=== PATIENT | male | born 1990 | race American Indian/Alaskan Native ===

== ENCOUNTER 2018-03-14 01:50 | Emergency (ER) | payer BC, MEDICAID, OTHER ==
--- NOTE | 2018-03-14 02:28 | ED PDOC ---
Arrival/HPI - General Historian: Patient - History of Present Illness Time/Duration: < week Symptom Onset: Gradual Symptom Course: Unchanged Quality: Aching, Pressure, Tightness Severity Level: 5 Activities at Onset: Rest <Johnny Cochran - Last Filed: 03/14/18 04:01> <Rasheed Bryant - Last Filed: 03/14/18 04:55> - General Chief Complaint: Chest Pain Time Seen by Provider: 03/14/18 02:04 - History of Present Illness Narrative History of Present Illness (Text): 03/14/18 02:25 Patient is a 27 year old male with no PMH who presents to ED with worsening SOB and L sided chest pain for the past three days. He also complains of generalized diaphoresis and states that his palms seem especially sweaty. He admits to vague numbness type symptoms in his upper extremities bilaterally. He admits to smoking marijuana regularly but denies tobacco, alcohol, or other drug use. He states he is worried he may have diabetes because his mother has diabetes and he has been more thirsty lately. Other than polydypsia, he denies dysuria, increased frequency, fever, chills, cough, wheezing, peripheral swelling, or other symptoms. (Johnny Cochran) Past Medical History - Provider Review Nursing Documentation Reviewed: Yes - Travel History Have you recently traveled outside [place] w/in the past 3 mons?: No - Past History Past History: No Previous - Infectious Disease Hx of Infectious Diseases: None - Psychiatric Hx Substance Use: Yes (marijuana) - Anesthesia Hx Anesthesia: No <Johnny Cochran - Last Filed: 03/14/18 04:01> Family/Social History - Physician Review Nursing Documentation Reviewed: Yes Family/Social History: Diabetes (mother) Smoking Status: Never Smoked Hx Alcohol Use: No Hx Substance Use: Yes (marijuana) Route: Smoking/Inhalation <Johnny Cochran - Last Filed: 03/14/18 04:01> Allergies/Home Meds <Johnny Cochran - Last Filed: 03/14/18 04:01> <Rasheed Bryant - Last Filed: 03/14/18 04:55> Allergies/Adverse Reactions: Allergies No Known Allergies Allergy (Verified 03/14/18 02:06) Home Medications: Home Meds Medication Instructions Recorded Confirmed No Known Home Med 03/14/18 03/14/18 Review of Systems - Physician Review All systems were reviewed & negative as marked: Yes - Review of Systems Constitutional: absent: Fatigue, Weight Change, Fevers Eyes: absent: Vision Changes ENT: absent: Sore Throat, Rhinorrhea Respiratory: SOB. absent: Cough, Wheezing Cardiovascular: Chest Pain. absent: Edema, Syncope Gastrointestinal: absent: Abdominal Pain, Nausea, Vomiting Genitourinary Male: absent: Dysuria, Frequency Musculoskeletal: absent: Arthralgias, Back Pain Skin: absent: Rash, Pruritis Neurological: absent: Headache, Dizziness Endocrine: Diaphoresis, Polydipsia Hemo/Lymphatic: absent: Adenopathy Psychiatric: absent: Anxiety, Depression <Johnny Cochran - Last Filed: 03/14/18 04:01> Physical Exam Vital Signs Reviewed: Yes Temperature: Afebrile Blood Pressure: Normal Pulse: Regular Respiratory Rate: Normal Appearance: Positive for: Non-Toxic, Comfortable Pain Distress: None Mental Status: Positive for: Alert and Oriented X 3 - Systems Exam Head: Present: Atraumatic, Normocephalic Pupils: Present: PERRL Extroacular Muscles: Present: EOMI Conjunctiva: Present: Normal Mouth: Present: Moist Mucous Membranes Pharnyx: Present: Normal. No: ERYTHEMA, EXUDATE Nose (External): Present: Atraumatic Neck: Present: Normal Range of Motion. No: JVD Respiratory/Chest: Present: Clear to Auscultation. No: Wheezes, Rales, Rhonchi Cardiovascular: Present: Regular Rate and Rhythm, Normal S1, S2. No: Murmurs, Rub, Gallop Abdomen: Present: Tenderness (mild tenderness in LLQ). No: Distention, Rebound , Guarding Back: Present: Normal Inspection. No: CVA Tenderness Upper Extremity: Present: Normal Inspection, Neurovascularly Intact. No: Cyanosis, Edema Lower Extremity: Present: Normal Inspection, Neurovascularly Intact. No: Edema Neurological: Present: CN II-XII Intact, Speech Normal, Motor Func Grossly Intact, Normal Sensory Function, Gait Normal Skin: Present: Warm, Dry Psychiatric: Present: Alert, Oriented x 3 <Johnny Cochran - Last Filed: 03/14/18 04:01> Vital Signs Temp Pulse Resp BP Pulse Ox 03/14/18 03:00 98.8 F 74 16 128/77 99 03/14/18 02:03 98.1 F 83 18 140/69 100 Medical Decision Making - Lab Interpretations I have reviewed the lab results: Yes Interpretation: All labs normal - RAD Interpretation Sane Rn: ED Physician - EKG Interpretation Interpreted by ED Physician: Yes Type: 12 lead EKG Comparison: No previous EKG avail. <Johnny Cochran - Last Filed: 03/14/18 04:01> <Rasheed Bryant - Last Filed: 03/14/18 04:55> ED Course and Treatment: 03/14/18 03:14 -Low suspicion for ACS -Troponin and other labs unremarkable -PERC criteria all negative 03/14/18 03:51 -Patient reexamined -States SOB and CP have improved -He feels ready to go home (Johnny Cochran) Patient Seen With Resident: In agreement with resident note which contains more details about the patient. Patient was seen and evaluated with resident. Came up with plan and treatment together. 27 year old male presents complaining of worsening shortness of breath and left- sdied chest pain for the past 3 days. atypcial symtpoms perc neg, cxr neg as read by me, advise outpt fu . Plan: -- EKG -- Labs -- Chest X-ray 2V -- Urinalysis 03/14/18 04:55 (Rasheed Bryant) - Lab Interpretations Lab Results: 03/14/18 02:38 03/14/18 02:38 Lab Results 03/14/18 02:40: Urine Color Yellow, Urine Appearance Clear, Urine pH 6.5, Ur Specific [place] <= 1.005, Urine Protein Negative, Urine Glucose (UA) Negative, Urine Ketones Negative, Urine Blood Negative, Urine Nitrate Negative, Urine Bilirubin Negative, Urine Urobilinogen 0.2, Ur Leukocyte Esterase Negative 03/14/18 02:38: Sodium 141, Potassium 3.6, Chloride 106, Carbon Dioxide 24, Anion Gap 14, BUN 15, Creatinine 1.0, Est GFR ( Amer) > 60, Est GFR (Non- Af Amer) > 60, Random Glucose 112 H, Calcium 9.6, Magnesium 2.0, Total Bilirubin 0.9, AST 20, ALT 25, Alkaline Phosphatase 76, Lactate Dehydrogenase 399, Total Creatine Kinase 135, Troponin I < 0.01, Total Protein 7.3, Albumin 4.5, Globulin 2.8, Albumin/Globulin Ratio 1.6 03/14/18 02:38: PT 12.0, INR 1.05, APTT 25.9 03/14/18 02:38: WBC 8.8, RBC 5.76, Hgb 15.4, Hct 44.3, MCV 76.9 L, MCH 26.7, MCHC 34.8, RDW 12.9, Plt Count 304, MPV 10.0, Gran % 52.4, Lymph % (Auto) 41.9 H , [place] % (Auto) 4.5, Eos % (Auto) 0.3 L, Baso % (Auto) 0.9, Gran # 4.62, Lymph # (Auto) 3.7 H, [place] # (Auto) 0.4, Eos # (Auto) 0.0, Baso # (Auto) 0.08 - RAD Interpretation Narrative RAD Interpretations (Text): 03/14/18 03:51 CXR without acute findings (Johnny Cochran) Radiology Orders: 03/14/18 02:25 CHEST TWO VIEWS (PA/LAT) [RAD] Stat - EKG Interpretation EKG Interpretation (Text): 03/14/18 03:52 Normal sinus rhythm, no ST or T wave changes (Johnny Cochran) <Johnny Cochran - Last Filed: 03/14/18 04:01> - PA / SMOKE EATER / Resident Statement MD/ has reviewed & agrees with the documentation as recorded. MD/ has examined the patient and agrees with the treatment plan. - Scribe Statement The provider has reviewed the documentation as recorded by the Scribe <Rasheed Bryant - Last Filed: 03/14/18 04:55> - Scribe Statement Kamar Gotti Provider Scribe Attestation: All medical record entries made by the Scribe were at my direction and personally dictated by me. I have reviewed the chart and agree that the record accurately reflects my personal performance of the history, physical exam, medical decision making, and the department course for this patient. I have also personally directed, reviewed, and agree with the discharge instructions and disposition. (Rasheed Bryant) Disposition/Present on Arrival - Present on Arrival Any Indicators Present on Arrival: No History of DVT/PE: No History of Uncontrolled Diabetes: No Urinary Catheter: No History of Decub. Ulcer: No History Surgical Site Infection Following: None - Disposition Have Diagnosis and Disposition been Completed?: Yes Disposition Time: 03:51 Patient Plan: Discharge <Johnny Cochran - Last Filed: 03/14/18 04:01> <Rasheed Bryant - Last Filed: 03/14/18 04:55> - Disposition Diagnosis: Dyspnea, Chest pain Disposition: HOME/ ROUTINE Condition: GOOD Discharge Instructions (ExitCare): Chest Pain That Is Not Caused by the Heart ( DC), Chest Pain (ED) Referrals: Camacho Hammond MD [Primary Care Provider] - Follow up with primary Forms: [employer] ([place]ovenian), WORK NOTE
[2018-03-14 02:53] LABS: PH,URINE 6.5 (4.7-8.0); URINE BILIRUBIN NEGATIVE (NEGATIVE); URINE BLOOD NEGATIVE (NEGATIVE); URINE GLUCOSE (UA) NEGATIVE (NEGATIVE); URINE LEUKOCYTE ESTERASE NEGATIVE Leu/uL (NEGATIVE); URINE PROTEIN NEGATIVE mg/dL (<30 mg/dL); URINE UROBILINOGEN 0.2 E.U./dL (<1 E.U./dL)
[2018-03-14 02:55] LABS: INR 1.05
[2018-03-14 02:56] LABS: BASO # 0.08 K/mm3 (0.0-2.0); BASO % 0.9 % (0.0-3.0); EOS % 0.3 % (1.5-5.0); GRAN # 4.62 (1.4-6.5); GRAN % 52.4 % (50.0-68.0); HEMOGLOBIN 15.4 g/dL (14.0-18.0); LYMPH # 3.7 (1.2-3.4); LYMPH % 41.9 % (22.0-35.0); MEAN CELL VOLUME 76.9 fl (80.0-105.0); MEAN CORPUSCULAR HEMOGLOBIN 26.7 pg (25.0-35.0); MEAN CORPUSCULAR HGB CONC 34.8 g/dl (31.0-37.0); MONO # 0.4 (0.1-0.6); MONO % 4.5 % (1.0-6.0); RBC 5.76 10^6/uL (3.5-6.1); RED CELL DISTRIBUTION WIDTH 12.9 % (11.5-14.5); WHITE BLOOD COUNT 8.8 10^3/ul (4.5-11.0)
[2018-03-14 02:58] LABS: PARTIAL THROMBOPLASTIN TIME 25.9 Seconds (25.1-36.5)
[2018-03-14 03:01] LABS: ALB/GLOB RATIO 1.6 (1.1-1.8); ALBUMIN 4.5 g/dL (3.0-4.8); ALT/SGPT 25 U/L (7-56); AST/SGOT 20 U/L (17-59); BLOOD UREA NITROGEN 15 mg/dL (7-21); CALCIUM 9.6 mg/dL (8.4-10.5); GFR AFRICAN-AMERICAN > 60; GFR NON-AFRICAN AMERICAN > 60
[2018-03-14 03:03] LABS: URINE APPEARANCE CLEAR (CLEAR); URINE COLOR YELLOW (YELLOW)
[2018-03-14 03:11] LABS: TROPONIN I < 0.01 ng/mL
[2018-03-14 04:36] VITALS: BP 128/77; PULSE 74; RESP 16; TEMP 98.8; O2SAT 99
--- NOTE | 2018-03-14 22:42 | CARD ---
APPROVED REPORT Date of service: 03/14/2018 EKG Measurement Heart [id number] <Conclusion> Normal sinus rhythm with sinus arrhythmia Normal ECG
== END 2018-03-14 03:00 | disposition home or self-care (01) ==
LOC: ED 01:50
DX: R06.00 Dyspnea, unspecified (principal); R07.9 Chest pain, unspecified

== ENCOUNTER 2018-03-14 19:51 | Observation (INO) | payer OTHER ==
[2018-03-14 21:19] LABS: BASO # 0.05 K/mm3 (0.0-2.0); BASO % 0.6 % (0.0-3.0); EOS % 0.3 % (1.5-5.0); GRAN # 5.57 (1.4-6.5); GRAN % 63.5 % (50.0-68.0); LYMPH # 2.8 (1.2-3.4); LYMPH % 31.7 % (22.0-35.0); MEAN CELL VOLUME 76.5 fl (80.0-105.0); MEAN CORPUSCULAR HEMOGLOBIN 26.9 pg (25.0-35.0); MEAN CORPUSCULAR HGB CONC 35.1 g/dl (31.0-37.0); MEAN PLATELET VOLUME 9.8 fl (7.0-11.0); MONO # 0.3 (0.1-0.6); MONO % 3.9 % (1.0-6.0); RBC 5.58 10^6/uL (3.5-6.1); RED CELL DISTRIBUTION WIDTH 12.9 % (11.5-14.5); WHITE BLOOD COUNT 8.8 10^3/ul (4.5-11.0)
--- NOTE | 2018-03-14 21:21 | ED PDOC ---
Arrival/HPI <Jimmy Moscoso - Last Filed: 03/14/18 21:29> - General Historian: Patient - History of Present Illness Time/Duration: 24 hours Symptom Onset: Sudden Symptom Course: Intermittent Activities at Onset: Rest, Light Context: Home <Tamar Kumari PA-C - Last Filed: 03/15/18 01:24> - General Chief Complaint: Shortness Of Breath Time Seen by Provider: 03/14/18 19:55 - History of Present Illness Narrative History of Present Illness (Text): 03/14/18 21:16 A 27 year old male, with no significant past medical history, presents to the emergency department with a complaint of shortness of breath and chest pain. Patient states that he has been having these symptoms intermittently for the last 24 hours. The patient states that when he experiences the chest pain/ shortness of breath, he also begins to feel numbness to his arms, legs and head. He reports that it occurs every 30 minutes and worsens when he lays down, it is not exertional. He states that his current symptoms began at around 5 PM today and have not resolved. He states that he was seen in the morning for the same symptoms and had a negative cardiac workup. He was also seen by his PMD today, who advised him to come to the emergency department for re-evaluation and possible admission. Patient admits to recent weight loss. He denies fevers, chills, headache, dizziness, dyspnea on exertion, cough, abdominal pain, nausea , vomiting, diarrhea, back pain, neck pain, urinary/bowel changes, or any other complaint. PMD: Dr. Wood (Tamar Kumari PA-C) Past Medical History - Provider Review Nursing Documentation Reviewed: Yes - Past History Past History: No Previous - Infectious Disease Hx of Infectious Diseases: None - Psychiatric Hx Substance Use: Yes (marijuana daily) - Anesthesia Hx Anesthesia: No <Tamar Kumari PA-C - Last Filed: 03/15/18 01:24> Family/Social History - Physician Review Nursing Documentation Reviewed: Yes Family/Social History: No Known Family HX Smoking Status: marijuana Hx Alcohol Use: No Hx Substance Use: Yes (marijuana daily) <Tamar Kumari PA-C - Last Filed: 03/15/18 01:24> Allergies/Home Meds <Danis,Jimmy - Last Filed: 03/14/18 21:29> <Tamar Kumari PA-C - Last Filed: 03/15/18 01:24> Allergies/Adverse Reactions: Allergies No Known Allergies Allergy (Verified 03/14/18 19:53) Home Medications: Home Meds Medication Instructions Recorded Confirmed No Known Home Med 03/14/18 03/14/18 Review of Systems - Physician Review All systems were reviewed & negative as marked: Yes - Review of Systems Constitutional: absent: Fevers Respiratory: SOB. absent: Cough Cardiovascular: Chest Pain. absent: SOTO Gastrointestinal: absent: Abdominal Pain, Stool Changes, Diarrhea, Nausea, Vomiting Genitourinary Male: absent: Urinary Output Changes Musculoskeletal: Other (Hands, legs, head numbness). absent: Back Pain, Neck Pain Neurological: absent: Headache, Dizziness <Tamar Kumari PA-C - Last Filed: 03/15/18 01:24> Physical Exam Temperature: Afebrile Blood Pressure: Normal Pulse: Regular Respiratory Rate: Normal Appearance: Positive for: Well-Appearing, Non-Toxic, Comfortable Pain Distress: None Mental Status: Positive for: Alert and Oriented X 3 - Systems Exam Head: Present: Atraumatic, Normocephalic Pupils: Present: PERRL Extroacular Muscles: Present: EOMI Conjunctiva: Present: Normal Mouth: Present: Moist Mucous Membranes Neck: Present: Normal Range of Motion Respiratory/Chest: Present: Clear to Auscultation, Good Air Exchange. No: Respiratory Distress, Accessory Muscle Use Cardiovascular: Present: Regular Rate and Rhythm, Normal S1, S2. No: Murmurs Abdomen: No: Tenderness, Distention, Peritoneal Signs Back: Present: Normal Inspection Upper Extremity: Present: Normal Inspection. No: Cyanosis, Edema Lower Extremity: Present: Normal Inspection. No: Edema Neurological: Present: GCS=15, CN II-XII Intact, Speech Normal Skin: Present: Warm, Dry, Normal Color. No: Rashes Psychiatric: Present: Alert, Oriented x 3, Normal Insight, Normal Concentration <Tamar Kumari PA-C - Last Filed: 03/15/18 01:24> Vital Signs Temp Pulse Resp BP Pulse Ox 03/14/18 21:03 18 08/06/18 19:54 98.8 F 66 16 146/78 100 Medical Decision Making <Jimmy Moscoso - Last Filed: 03/14/18 21:29> - Lab Interpretations I have reviewed the lab results: Yes - EKG Interpretation Interpreted by ED Physician: Yes Type: 12 lead EKG <Tamar Kumari PA-C - Last Filed: 03/15/18 01:24> ED Course and Treatment: 03/14/18 21:22 Impression: A 27 year old male presents to the emergency department with complaint of intermittent, 24 hour chest pain and shortness of breath. Plan: -- Angio Chest CT -- EKG -- Labs -- Reassess and disposition Progress Notes: 03/14/18 21:23 EKG: Ordered, reviewed, and independently interpreted the EKG. Rate : 70 BPM Rhythm : NSR Interpretation : No acute ST changes 03/14/18 21:13: Case discussed in detail with Dr. Wood who accepts patient to his service. Request a Chest/Abd/Pelvis CT with concern for possible lymphoma. Requests Dr. Malave for pulmonology consult. Labs reviewed : trop (-), d-dimer (-) CTA Chest: FINDINGS: Pulmonary arteries: Unremarkable. No pulmonary embolism. Aorta: No acute findings. No thoracic aortic aneurysm. Lungs: Unremarkable. No mass. No consolidation. Pleural space: Unremarkable. No significant effusion. No pneumothorax. Heart: Unremarkable. No cardiomegaly. No significant pericardial effusion. No evidence of RV dysfunction. Bones/joints: No acute fracture. No dislocation. Soft tissues: Unremarkable. Lymph nodes: Unremarkable. No enlarged lymph nodes. IMPRESSION: Normal chest CTA. No pulmonary embolism. Dictated and Authenticated by: Kaylyn Cline MD 03/14/2018 10:53 PM Eastern Time ([place] & [place]) CT A/P w/ IV contrast: FINDINGS: Lung bases: Unremarkable. No mass. No consolidation. ABDOMEN: Liver: Unremarkable. No mass. Gallbladder and bile ducts: Unremarkable. No calcified stones. No ductal dilation. Pancreas: Unremarkable. No mass. No ductal dilation. Spleen: Unremarkable. No splenomegaly. Adrenals: Unremarkable. No mass. Kidneys and ureters: Unremarkable. No solid mass. No hydronephrosis. Stomach and bowel: Unremarkable. No obstruction. No mucosal thickening. PELVIS: Appendix: No findings to suggest acute appendicitis. Normal appendix. Bladder: Unremarkable. No mass. Reproductive: Unremarkable as visualized. ABDOMEN and PELVIS: Intraperitoneal space: Unremarkable. No free air. No significant fluid collection. Bones/joints: No acute fracture. No dislocation. Soft tissues: Unremarkable. Vasculature: Unremarkable. No abdominal aortic aneurysm. Lymph nodes: Unremarkable. No enlarged lymph nodes. IMPRESSION: No evidence of an acute intra-abdominal or pelvic abnormality. Dictated and Authenticated by: Kaylyn Cline MD 03/14/2018 11:06 PM Eastern Time ([place] & [place]) ([place] JUAREZ,Tamar Mendieta) - Lab Interpretations Lab Results: 03/14/18 21:00 03/14/18 21:00 Lab Results 03/14/18 21:00: PT 12.0, INR 1.05, APTT 25.8, D-Dimer, Quantitative < 200 03/14/18 21:00: Sodium 145, Potassium 3.4 L, Chloride 108 H, Carbon Dioxide 23, Anion Gap 17, BUN 15, Creatinine 0.9, Est GFR ( Amer) > 60, Est GFR (Non- Af Amer) > 60, Random Glucose 122 H, Calcium 9.7, Magnesium 2.1, Total Bilirubin 0.8, AST 31, ALT 18, Alkaline Phosphatase 66, Lactate Dehydrogenase 398, Total Creatine Kinase 108, Troponin I < 0.01, Total Protein 7.2, Albumin 4.5, Globulin 2.7, Albumin/Globulin Ratio 1.6 03/14/18 21:00: WBC 8.8, RBC 5.58, Hgb 15.0, Hct 42.7, MCV 76.5 L, MCH 26.9, MCHC 35.1, RDW 12.9, Plt Count 303, MPV 9.8, Gran % 63.5, Lymph % (Auto) 31.7, [place] % (Auto) 3.9, Eos % (Auto) 0.3 L, Baso % (Auto) 0.6, Gran # 5.57, Lymph # ( Auto) 2.8, [place] # (Auto) 0.3, Eos # (Auto) 0.0, Baso # (Auto) 0.05 - RAD Interpretation Radiology Orders: 03/14/18 21:16 ANGIO CHEST PE PROTOCOL [CT] Stat - Medication Orders Current Medication Orders: Discontinued Medications Aspirin (Aspirin) 325 mg PO ONCE STA Stop: 03/14/18 21:33 Last Admin: 03/14/18 22:20 Dose: 325 mg Potassium Chloride (K-Dur 20 Meq Er Tab) 20 meq PO STAT STA Stop: 03/14/18 21:53 Last Admin: 03/14/18 22:20 Dose: 20 meq - PA / LITHOGRAPHIC PHOTOGRAPHER APPRENTICE / Resident Statement / has reviewed & agrees with the documentation as recorded. / has examined the patient and agrees with the treatment plan. <Jimmy Moscoso - Last Filed: 03/14/18 21:29> - PA / LITHOGRAPHIC PHOTOGRAPHER APPRENTICE / Resident Statement / has reviewed & agrees with the documentation as recorded. - Scribe Statement The provider has reviewed the documentation as recorded by the Scribe <Tamar Kumari PA-C - Last Filed: 03/15/18 01:24> - Scribe Statement Melissa Barger Provider Scribe Attestation: All medical record entries made by the Scribe were at my direction and personally dictated by me. I have reviewed the chart and agree that the record accurately reflects my personal performance of the history, physical exam, medical decision making, and the department course for this patient. I have also personally directed, reviewed, and agree with the discharge instructions and disposition. (Tamar Kumari PA-C) Disposition/Present on Arrival <Jimmy Moscoso - Last Filed: 03/14/18 21:29> - Present on Arrival Any Indicators Present on Arrival: No History of DVT/PE: No History of Uncontrolled Diabetes: No Urinary Catheter: No History of Decub. Ulcer: No History Surgical Site Infection Following: None - Disposition Have Diagnosis and Disposition been Completed?: Yes Disposition Time: 21:30 Patient Plan: Admission <Tamar Kumari PA-C - Last Filed: 03/15/18 01:24> - Disposition Diagnosis: Chest pain, Weight loss Disposition: HOSPITALIZED Condition: STABLE
[2018-03-14 21:24] LABS: INR 1.05; PARTIAL THROMBOPLASTIN TIME 25.8 Seconds (25.1-36.5)
[2018-03-14 21:29] LABS: D DIMER < 200 mg/L DDU (0-243)
[2018-03-14] MEDS ORDERED: Iohexol 350 MG/100 ML VIAL ONE (21:29)
[2018-03-14 21:38] LABS: ALB/GLOB RATIO 1.6 (1.1-1.8); ALBUMIN 4.5 g/dL (3.0-4.8); ALT/SGPT 18 U/L (7-56); AST/SGOT 31 U/L (17-59); BLOOD UREA NITROGEN 15 mg/dL (7-21); CALCIUM 9.7 mg/dL (8.4-10.5); GFR AFRICAN-AMERICAN > 60; GFR NON-AFRICAN AMERICAN > 60
[2018-03-14 21:46] LABS: TROPONIN I < 0.01 ng/mL
[2018-03-14] MEDS ORDERED: Potassium Chloride 20 mEq ER Tab PO STA (21:52)
[2018-03-15 01:59] VITALS: BMI 20.7
--- NOTE | 2018-03-15 08:53 | CT ---
Date of service: 03/14/2018 PROCEDURE: CT Chest with contrast (Pulmonary Angiogram) HISTORY: chest pain, SOB, r/o PE COMPARISON: None available. TECHNIQUE: Axial computed tomography images were obtained of the chest in the pulmonary arterial phase of enhancement. Coronal and sagittal reformatted images were created and reviewed. Intravenous contrast dose: 100 mL Omnipaque 350 Radiation dose: Total exam DLP = 433.88 MGy-cm. This CT exam was performed using one or more of the following dose reduction techniques: Automated exposure control, adjustment of the mA and/or kV according to patient size, and/or use of iterative reconstruction technique. FINDINGS: PULMONARY ARTERIES: Unremarkable. No pulmonary embolism. AORTA: No acute findings. No thoracic aortic aneurysm. LUNGS: Unremarkable. No nodule, mass or pulmonary consolidation. PLEURAL SPACES: Unremarkable. No effusion or pneumothorax. HEART: Unremarkable. No cardiomegaly. No significant pericardial effusion. LYMPH NODES: No lymphadenopathy. BONES, CHEST WALL: Unremarkable. No fracture or destructive lesion OTHER FINDINGS: Unremarkable. IMPRESSION: Unremarkable CT pulmonary angiogram. No pulmonary embolus. The preliminary findings for this examination were reported by [facility] at 10:53 p.m. on 03/14/2018. There is concurrence of this report with the preliminary findings.
--- NOTE | 2018-03-15 09:18 | CT ---
Date of service: 03/14/2018 PROCEDURE: CT Abdomen and Pelvis with contrast HISTORY: weight loss COMPARISON: None. TECHNIQUE: Contrast dose: 100 mL Omnipaque 350 Radiation dose: Total exam DLP = 433.88 mGy-cm. This CT exam was performed using one or more of the following dose reduction techniques: Automated exposure control, adjustment of the mA and/or kV according to patient size, and/or use of iterative reconstruction technique. Examination technically limited due to delayed imaging following contrast administration resulting in the excretory phase imaging of the urinary tract. FINDINGS: LOWER THORAX: Unremarkable. LIVER: Unremarkable. No gross lesion or ductal dilatation. GALLBLADDER AND BILE DUCTS: Unremarkable. PANCREAS: Unremarkable. No gross lesion or ductal dilatation. SPLEEN: Unremarkable. ADRENALS: Unremarkable. No mass. KIDNEYS AND URETERS: Unremarkable. No hydronephrosis. No solid mass. VASCULATURE: Unremarkable. No aortic aneurysm. BOWEL: Unremarkable. No obstruction. No gross mural thickening. APPENDIX: Not identified. No secondary findings. PERITONEUM: Unremarkable. No free fluid. No free air. LYMPH NODES: Unremarkable. No enlarged lymph nodes. BLADDER: Urinary bladder significant for ill-defined soft tissue density at the bladder base, towards the left side. This may be the result of non-opacified or partially opacified urine entering the urinary bladder, although possibility of a soft tissue mass must also be considered. Further evaluation is therefore advised. REPRODUCTIVE: Normal prostate BONES: No acute fracture. OTHER FINDINGS: None. IMPRESSION: Technically limited examination. Soft tissue density at bladder base may reflect partially opacified urine due to delay in imaging following contrast administration. Further evaluation is advised to exclude bladder neoplasm. The preliminary findings for this examination were reported by [facility] at 11:06 p.m. on 03/14/2018. There is discordance of this report with the preliminary findings. Findings regarding urinary bladder were not discussed in the preliminary report of this examination.
--- NOTE | 2018-03-15 09:21 | CON ---
Copied To: Rj Malave MD Attending MD: Rj Malave MD. DATE: 03/15/2018 PULMONARY CONSULTATION REASON FOR CONSULTATION: Shortness of breath. REFERRING PHYSICIAN: Brayan Wood MD. HISTORY OF PRESENT ILLNESS: The patient is a 27-year-old male, with no significant past medical history, on no medications at home, who presents to [facility] with main complaints of increasing shortness of breath at rest, and dyspnea on exertion for the past 1 day. The patient also states to chest pain (described across his anterior chest) "on and off" for the past 1 day. There is no history of cough or sputum production. There is no history of hemoptysis. There is no history of worsening chest pain with deep respirations. There is no history of temperatures, chills or infectious exposure. There is no history of night sweats. The patient does state to weight loss with decreased appetite over the past few months. No history of leg or calf pains. No history of syncope or diaphoresis. No history of recent travel or trauma. REVIEW OF SYSTEMS: No history of nausea, vomiting or diarrhea. No acute urinary symptoms. No new musculoskeletal complaints. The patient does state to feeling mild numbness in his arms and legs at times. These symptoms are not present this morning. ALLERGIES: NO KNOWN ALLERGIES. SOCIAL HISTORY: Positive for marijuana abuse. The patient denies smoking cigarettes, heroin, or cocaine usage. He denies intravenous drug abuse. He denies alcohol abuse. FAMILY HISTORY: No inheritable diseases. No history of asthma or other lung disease in his family. MEDICATIONS AT HOME: None. PHYSICAL EXAMINATION: GENERAL: Patient appears quite comfortable this morning. He is not short of breath at rest. VITAL SIGNS: Temperature is 98.2, pulse 56, respirations 18, blood pressure 104/60. Oxygen saturation on room air is 99%. HEENT: Normocephalic, atraumatic. NECK: No JVD. CARDIOVASCULAR: Positive S1, S2. No S3 gallop. LUNGS: Clear bilaterally. EXTREMITIES: No clubbing, cyanosis or edema. Calves are nontender to palpation. GI: Abdomen is soft, nontender and nondistended. Bowel sounds are positive. Skin: No acute rash. NEUROLOGIC: Exam limited at the present time. PERTINENT LABORATORY DATA: CAT scan of the chest was done as an angiogram protocol. There is no pulmonary embolism noted. The lungs are clear. There is no mass or consolidation. There is no pleural effusion. CBC: White count 8.8K, hemoglobin 15.0, hematocrit 42.7 and platelets of 303,000. Complete metabolic profile: Potassium 3.4, chloride 108, glucose 122. Rest of the metabolic profile is within normal limits. IMPRESSION: 1. Shortness of breath-resolved. 2. Chest pain-resolved. 3. Weight loss. 4. Electrolyte abnormalities. Plan: I did discuss the case with the night nurse at length. I have also reviewed the chart at length, and discussed the case with the patient at length. The patient presents to [facility] with a 1-day history of increasing shortness of breath at rest and dyspnea on exertion. As above, his shortness of breath has now resolved. In addition, the patient also presented with chest pain"on and off" for the past 1 day. As above, the patient denies chest pain this morning. I did review the CAT scan of the chest-done as a pulmonary angiogram. The CAT scan of the chest is negative for acute pulmonary embolism. The CAT scan of the chest is also negative for any new/acute pulmonary abnormalities. On physical exam, his lungs are clear. Oxygen saturation on room air is 99%-100%. In addition to the above, the patient also stated to some numbness in his arms and legs (also resolved this morning). It is possible that the above symptoms are secondary to anxiety. However, I would still continue with the current workup and evaluation. Lastly, the patient does state to weight loss. Oncology evaluation has been ordered. The patient does feel much better this morning, with complete resolution of his symptoms. He is certainly clinically improved. I will discuss the above with Dr. Wood in the next few moments. Additional pulmonary intervention will be based on the clinical status of the patient. Thank you very much for this pulmonary consultation. Rj Malave MD KRIS
[2018-03-15 10:56] LABS: BASO # 0.04 K/mm3 (0.0-2.0); BASO % 0.6 % (0.0-3.0); EOS % 0.6 % (1.5-5.0); GRAN # 3.82 (1.4-6.5); GRAN % 54.3 % (50.0-68.0); HEMOGLOBIN 15.5 g/dL (14.0-18.0); LYMPH # 2.7 (1.2-3.4); LYMPH % 38.5 % (22.0-35.0); MEAN CELL VOLUME 77.3 fl (80.0-105.0); MEAN CORPUSCULAR HEMOGLOBIN 26.9 pg (25.0-35.0); MEAN CORPUSCULAR HGB CONC 34.8 g/dl (31.0-37.0); MONO # 0.4 (0.1-0.6); RBC 5.77 10^6/uL (3.5-6.1); RED CELL DISTRIBUTION WIDTH 13.1 % (11.5-14.5)
[2018-03-15 10:59] LABS: IRON 172 ug/dL (45-180)
--- NOTE | 2018-03-15 11:00 | CON ---
Copied To: Maggy Nieves MD Attending MD: Maggy Nieves MD DATE: 03/15/2018 HISTORY OF PRESENT ILLNESS: Mr. Weston is 27-year-old male admitted to the hospital with chest pain and shortness of breath. CT angio is negative for pulmonary embolism. He also has complaints of weight loss, excessive sweating, loss of appetite. CT abdomen and pelvis is unremarkable for lymphadenopathy or mass lesions. He smokes marijuana for past 10 years. 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 No history of exposure to chemicals. He also reports loss of appetite. He has multiple other complaints of tingling sensation in legs and extremity. He thinks as if blood is running up from lower part of the body. No diarrhea. No bleeding from any sites. PAST MEDICAL HISTORY: None. PERSONAL HISTORY: Smokes marijuana for past 10 years. No history of alcohol abuse. ALLERGIES: NO KNOWN DRUG ALLERGIES. HOME MEDICATIONS: None. FAMILY HISTORY: No positive family history of cancer or blood disorders. REVIEW OF SYSTEMS: As per HPI. Rest of 12-point review of systems reviewed and negative. PHYSICAL EXAMINATION: GENERAL: Comfortable in bed, in no acute distress. VITAL SIGNS: Temperature 98.7, heart rate 86 per minute, respiratory rate 16 per minute, blood pressure 140/70, pulse ox is 100% on room air. HEENT: No pallor. NECK: No lymphadenopathy. CHEST: Air entry present and equal bilateral. No added sounds. CARDIOVASCULAR: S1, S2 normal. No murmur. No gallop. ABDOMEN: Soft, nontender. No hepatosplenomegaly. EXTREMITIES: No edema. SKIN: No petechiae. No rash. SPINE: Nontender. ORACLE PROGRAMMER: Alert and oriented x3. No focal sensory or motor deficit. LABORATORY DATA: White count 8.8, hemoglobin 15, hematocrit 42.7, MCV 76, platelet count 303. Sodium 145, potassium 3.4, creatinine 0.9, calcium 9.7. Cardiac enzymes negative. Coags normal. LDH 398. CT chest angio negative for pulmonary embolism. No lesions identified in the lung parenchyma. CT abdomen and pelvis unremarkable. ASSESSMENT AND PLAN: 1. Chest pain, pulmonary embolism ruled out. 2. Weight loss, loss of appetite and sweating, excessive. Clinically, no lymphadenopathy. CT abdomen and pelvis did not show any lymphadenopathy or mass lesions suspicious for lymphoma. Blood counts are normal except microcytosis with MCV of 76. LDH is normal. Symptom seems to be nonspecific. No evidence of lymphoma. No suspicion for lymphoma based on blood count and imaging. 3. Microcytosis, MCV low at 76, we will send iron studies, he might have sickle cell thalassemia trait, hemoglobin is normal at 15. 4. History of marijuana. He smokes for past 10 years. Intervention as per Dr. Wood. Thank you, Dr. Wood, for allowing us to participate in his care. We will continue to follow. Maggy Nieves MD
[2018-03-15 11:03] LABS: ALB/GLOB RATIO 1.6 (1.1-1.8); ALBUMIN 4.5 g/dL (3.0-4.8); ALT/SGPT 19 U/L (7-56); AST/SGOT 16 U/L (17-59); BLOOD UREA NITROGEN 14 mg/dL (7-21); CALCIUM 9.5 mg/dL (8.4-10.5); GFR AFRICAN-AMERICAN > 60; GFR NON-AFRICAN AMERICAN > 60
[2018-03-15 11:11] LABS: % IRON SATURATION 60 % (20-55); TOTAL IRON BINDING CAPACITY 286 ug/dL (261-462)
[2018-03-15 14:41] LABS: BARBITURATES, UR NEGATIVE (NEGATIVE); BENZODIAZEPINES, UR NEGATIVE (NEGATIVE); OPIATES, UR NEGATIVE (NEGATIVE); PHENCYCLIDINE, UR NEGATIVE (NEGATIVE)
--- NOTE | 2018-03-15 15:39 | CARD ---
APPROVED REPORT Date of service: 03/14/2018 EKG Measurement Heart [id number] <Conclusion> Sinus rhythm with marked sinus arrhythmia Otherwise normal ECG
[2018-03-15 17:36] LABS: FERRITIN 93.6 ng/mL
--- NOTE | 2018-03-15 17:42 | US ---
Date of service: 03/15/2018 PROCEDURE: Bladder ultrasound HISTORY: bladder mass on CT COMPARISON: March 14, 2018. CT abdomen and pelvis TECHNIQUE: Standard protocol for this study/examination. FINDINGS: Urinary bladder assessment: Prevoid volume: 431.5 ml Postvoid residual: 40.7 ml Intrinsic, mural, perivesical abnormalities: None Ureteral jets: Not visualized. Transabdominal prostate volume 73.4 mL. IMPRESSION: Unremarkable urinary bladder. Neither focal no diffuse bladder wall abnormalities. Enlarged prostate identified. Calculated postvoid residual 40.7 mL.
[2018-03-15 17:46] VITALS: RESP 20
[2018-03-15 18:06] LABS: FOLATE 13.2 ng/mL
[2018-03-15 23:33] VITALS: TEMP 98.1
--- NOTE | 2018-03-16 02:18 | HP ---
Copied To: Brayan Wood MD Attending MD: Brayan Wood MD CHIEF COMPLAINT AND HISTORY OF PRESENT ILLNESS: This is a 27-year-old male who has come into the hospital complaining of diaphoresis. He has been having weight loss. The patient states he had gone to the ER about 2 days ago and had a blood work done. EKG and chest x-ray was essentially normal. He came into my office yesterday. He states that he was having shortness of breath as well for the last few days. He does have a lot of stress at work. He was going to get outpatient evaluation but I advised him that he had worsening of the shortness of breath, go to the ER. He came in last night because he was having worsening shortness of breath so came in for further evaluation. He states he has no complaints of any headaches or dizziness. No nausea. No vomiting. He does smoke marijuana and he is doing that for the past 10 years. The patient has no abdominal pain, no back pain. He has no dysuria or frequency. He does not get short of breath on exertion. He states that shortness of breath is while he is sitting. ALLERGIES: NO KNOWN DRUG ALLERGIES. HOME MEDICATIONS: He is not on any medications. SOCIAL HISTORY: He does smoke marijuana for the past 10 years. FAMILY HISTORY: No history of cancer in the family. PHYSICAL EXAMINATION: VITAL SIGNS: His temperature is 98.1, pulse is 56, blood pressure 116/79, respirations 16, O2 saturation 99%, height is 5 feet 6 inches, weight is 132 pounds. GENERAL: The patient lying in bed, uncomfortable, and in no acute distress. HEENT: Atraumatic and normocephalic. Anicteric sclerae. Moist mucosa. Vivian conjunctivae. No oral lesions. NECK: No JVD, anterior and posterior adenopathy, thyromegaly, or bruits. CARDIOVASCULAR: S1 and S2 regular. No murmur, rubs, or gallop. LUNGS: Clear to auscultation bilaterally. No wheezes, rales, or rhonchi. ABDOMEN: Bowel sounds are positive. Soft, nontender and nondistended. No hepatosplenomegaly. No rebound and no guarding EXTREMITIES: No cyanosis, clubbing, or edema. NEUROLOGIC: No facial asymmetry. Tongue is midline. No uvula deviation. Power is 5/5 upper extremity and lower extremity. Sensation intact in upper extremity and lower extremity. PSYCHIATRIC: He is awake, alert and oriented x3. No anxiety or depression. He has normal affect. GENITOURINARY: No CVA tenderness. VASCULAR: 2+ pulses in the carotid pulses and pedal pulses. SKIN: No erythema or nodules SPINE: Shows normal curvature. LABORATORY DATA: White count of 8.8, hemoglobin 15, platelet count is 303. D-dimer is less than 200. Chemistry showed potassium 3.4, repeat is 4.3. He had iron saturation of 60%. His ferritin is pending. He had B12 and folate is pending. DIAGNOSTIC DATA: He had a CT of the chest to rule out PE, which was negative. He had a CT of the abdomen and pelvis done that did not show any significant abnormalities. Shortness of breathe diaphoresis PLAN: The patient was seen by Pulmonary and by Hematology/Oncology. The patient's potassium was replaced. We will order bladder ultrasound. Brayan Wood MD MTDLucina
[2018-03-16 07:03] VITALS: BP 98/62; PULSE 61; O2SAT 94
--- NOTE | 2018-03-16 07:53 | PN ---
Copied To: Rj Malave MD Attending MD: Rj Malave MD DATE: 03/16/2018 PULMONARY NOTE SUBJECTIVE: The patient appears very comfortable this morning. He is not short of breath at rest. PHYSICAL EXAMINATION: VITAL SIGNS: Temperature is 98.1, pulse 61, respirations 18/20, blood pressure 94/62. Oxygen saturation on room air is 94-100%. HEENT: Normocephalic, atraumatic. No JVD. CARDIOVASCULAR: Positive S1, S2. No S3 gallop. LUNGS: Clear bilaterally. EXTREMITIES: No clubbing, cyanosis or edema. Calves are nontender to palpation. GI: Abdomen is soft, nontender and nondistended. Bowel sounds are positive. SKIN: No acute rash. NEUROLOGIC: Limited at the present time. IMPRESSION: 1. Shortness of breath - resolved. 2. Chest pain - resolved. 3. Weight loss. 4. Electrolyte abnormalities. PLAN: The patient appears very comfortable this morning. He is not short of breath at rest. He also denies chest pain. He does state to feeling much better overall. On physical exam, his lungs remain clear. Oxygen saturation on room air is 94-100%. I did note the CT scan of the chest in yesterday's assessment. There are no acute abnormalities. Input by Oncology (Dr. Nieves) is also noted. Clinical status of the patient is certainly improved - compared to his initial presentation. Oncology evaluation is ongoing. Pulmonary status appears stable at this point in time. I will discuss the above with Dr. Wood. jR Malave MD MTDD
--- NOTE | 2018-03-16 19:43 | DS ---
Copied To: Brayan Wood MD Attending MD: Brayan Wood MD HISTORY OF PRESENT ILLNESS: This is a 27-year-old male who had come in to the hospital complaining of shortness of breath and diaphoresis. The patient was seen by Pulmonary and Oncology. symptoms. Evaluation cannot show any lymph nodes that are enlarged. The patient had a CT of the abdomen and pelvis that showed significant soft tissue density at the bladder base towards the left side. An ultrasound done showed enlarged prostate. The patient felt well. He had urine tox done that shows he has cannabinoids. He does have a history of marijuana use. He has no headaches or dizziness. No nausea or vomiting. PHYSICAL EXAMINATION: VITAL SIGNS: Temperature is 98.1, pulse is 77, blood pressure is 118/62, respirations 20, O2 saturation is 100%. ASSESSMENT: 1. Shortness of breath, improved. 2. Marijuana use. PLAN: The patient is going to be discharged home. He is going to follow up as an outpatient. He may have underlying anxiety. He does have an enlarged prostate. This is unusual for someone of his age. Condition is stable. Activities increased as tolerated. Brayan Wood MD
== END 2018-03-16 12:51 | disposition home or self-care (01) ==
LOC: ED 19:51 → ERH 21:30 → 2RNO 22:42
PROVIDERS: ADMIT Internal Medicine Nephrology; ATTEND Internal Medicine Nephrology
DX: R06.02 Shortness of breath (principal); R07.9 Chest pain, unspecified; R61 Generalized hyperhidrosis; E87.8 Other disorders of electrolyte and fluid balance, not elsewhere classified; F12.10 Cannabis abuse, uncomplicated; R63.4 Abnormal weight loss; N40.0 Benign prostatic hyperplasia without lower urinary tract symptoms; F41.9 Anxiety disorder, unspecified
CPT/HCPCS: 36415; 71275; 74177; 76857; 80053; 80324; 80345; 80346; 80349; 80353; 80358; 80361; 82550; 82607; 82728; 82746; 83540; 83550; 83615; 83735; 83992; 84100; 84484; 85025; 85378; 85610; 85730; 93005; 99285; G0378; Q9967